=== PATIENT | male | born 2000 | race Hispanic/Latino ===

== ENCOUNTER 2020-09-13 06:13 | Emergency (ER) | payer SELFPAY ==
[2020-09-13] MEDS ORDERED: Bacitracin 1 PK ONE (07:08)
[2020-09-13] MEDS ORDERED: Lidocaine 1% w/Epinephrine 1:100K 20 ML VIAL ONE (07:08)
[2020-09-13 07:13] LABS: Amphetamine Not Detected (NotDetected); Barbiturates Screen Not Detected (NotDetected); Benzodiazepine Screen Not Detected (NotDetected); Cocaine Metabolite Screen Not Detected (NotDetected); Medtox Control Line Valid? VALID (VALID); Medtox Reader # READER 4; Methadone Not Detected (NotDetected); Methamphetamine Not Detected (NotDetected); Opiate Screen Not Detected (NotDetected); Oxycodone Screen Not Detected (NotDetected); Phencyclidine (PCP) Not Detected (NotDetected); THC/Cannabinoid Screen Not Detected (NotDetected); Tricyclic Screen Not Detected (NotDetected)
[2020-09-13 07:29] LABS: Acetaminophen Less than 6.0 mcg/mL (10.0-30.0); Alcohol 225 mg/dL (Less than 10); Salicylate Less than 8.0 mg/dL (15.0-30.0)
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
--- NOTE | 2020-09-13 07:59 | CT ---
Exam: Facial bone CT scan without IV contrast: Emergency after exam 7:03 AM 09/13/2020 This a final report Soft tissue swelling over the region of the left orbit, mandible, and maxillary and zygoma without ac susan fracture or dislocation. Evidence for disconjugate gaze. This report is in agreement with preliminary report.
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
[2020-09-13] MEDS ORDERED: Boostrix 0.5 ML (Tdap) VIAL ONE (08:16)
== END 2020-09-13 11:42 | disposition home or self-care (01) ==
LOC: ERS 06:13
DX: S01.81XA Laceration without foreign body of other part of head, initial encounter (principal); Z23 Encounter for immunization; Y09 Assault by unspecified means
CPT/HCPCS: 12001; 36415; 70450; 70486; 72125; 80306; 80307; 90471; 90715

== ENCOUNTER 2025-05-25 14:10 | Emergency (ER) | payer BC | END 2025-05-25 16:46 | disposition home or self-care (01) | LOC: ERS 14:10 | DX: S52.122A Displaced fracture of head of left radius, initial encounter for closed fracture (principal); W17.89XA Other fall from one level to another, initial encounter | CPT/HCPCS: 99283 ==